=== PATIENT | female | born 1960 | race Caucasian/White ===

== ENCOUNTER 2024-08-07 05:33 | Day surgery (SDC) | payer OTHER, SELFPAY ==
--- NOTE | 2024-08-06 11:27 | EKG ---
Test Date: 2024-08-06 Test Time: 10:13:24 Sales And Merchandising Associate: ARACELI MEASUREMENT RESULTS: Intervals: Rate: 81 ND: 180 QRSD: 82 QT: 368 QTc: 427 Viking: P: 40 ND: 180 QRS: 41 T: 53 INTERPRETIVE STATEMENTS: Normal sinus rhythm Normal ECG No previous ECG available for comparison Electronically Signed On 08-06-24 11:26:50 [employer] by Wilbur Esquivel
[2024-08-07] MEDS ORDERED: CEFAZOLIN SODIUM 1 GM/VIAL ONE (05:42)
[2024-08-07] MEDS ORDERED: dexAMETHasone 10 MG/ML VIAL ONE (05:50)
[2024-08-07] MEDS ORDERED: LIDOCAINE 1% MPF 5 ML VIAL ONE ×2 (05:50→06:29)
[2024-08-07] MEDS ORDERED: FENTANYL CITR 100 MCG/2 ML ONE (05:51)
[2024-08-07] MEDS ORDERED: EPINEPHRINE 1 MG/ML VIAL ONE (05:51)
[2024-08-07] MEDS ORDERED: BUPIVACAINE 0.5% PF 10 ML VIAL ONE (05:52)
[2024-08-07] MEDS ORDERED: MIDAZOLAM HCL 2 MG/2 ML INJ ONE (05:52)
[2024-08-07] MEDS: Ringers Lactate 1,000 ML IV ONE ×2 (05:55→07:55)
[2024-08-07] MEDS ORDERED: LIDOCAINE 2% MPF 5 ML VIAL ONE (06:29)
[2024-08-07] MEDS ORDERED: propofoL 200 MG/20 ML VIAL IV ONE (06:29)
[2024-08-07] MEDS ORDERED: dexAMETHasone 4 MG/ML VIAL ONE (07:09)
[2024-08-07] MEDS ORDERED: ONDANSETRON 4 MG/2 ML VIAL ONE (07:09)
[2024-08-07] MEDS ORDERED: EPHEDRINE SULF 50 MG/ML VIAL ONE (07:42)
[2024-08-07] MEDS ORDERED: MEPERIDINE HCL 25 MG/ML SYR ONE (09:08)
[2024-08-07 09:32] VITALS: O2SAT 97
[2024-08-07 09:38] VITALS: BP 139/70; TEMP 97.3
--- NOTE | 2024-08-07 09:55 | OP ---
Date of Procedure: 08/07/2024 Surgeon: Pardeep Mitchell MD Preoperative Diagnosis: Left patella fracture. Postoperative Diagnosis: Left patella fracture. Procedure: Left patella open reduction and internal fixation using tension band wire technique. Estimated Blood Loss: Less than 20 cc. Complications: There were no complications. Indications For Operation: Ms. Irizarry is a 63-year-old female who unfortunately fell injuring her le ft lower extremity. She was seen and examined at outside facility where x-rays were taken, which dem onstrated a displaced essentially transverse patellar fracture. This injury occurred nearing 3 weeks ago. Risks, benefits, and alternatives to this procedure has been discussed with the patient. She states she understands things as presented and wishes to proceed. Description Of Procedure: The patient was taken to the operating room and placed in supine position. General anesthesia was obtained by the Anesthesia staff. Following this, well-padded tourniquet wa s placed on superior left thigh. Left lower extremity was then prepped and draped in usual sterile f ashion for the procedure. C-arm was brought in to ensure we get good AP and lateral views and the pa tella was forced inferiorly as the tourniquet was raised. After this, a standard anterior incision w as taken down carefully through skin and soft tissues. Meticulous hemostasis being maintained using Bovie electrocautery. This leads to the patella. There was quite a bit of fibrous tissue overlying the patellar fracture, however, the fracture was easily identified. Knife as well as rongeur was the n used to gently clean the fracture site and mobilize slightly, which allowed for better reduction. After this, a alexander clamp was used to clamp and using the C-arm and biplanar C-arm radiography, two 1 .6 K-wires were then placed, which traversed the fracture site. After this, an 18-gauge wire was the n passed behind the wires. It was checked under C-arm, did have some laxity. However, a great deal of tension was placed and did appear to compress the fracture quite well. There were some areas, whi ch appeared to be not quite tension, but this does correspond to areas of rather thick soft tissue. After it was tightened sufficiently, the knee was then brought through good range of motion and was f ound to have no gapping. The pins were then positioned, bent, and placed in final position. Biplana r C-arm radiography was used to ensure placement of pins and wire as well as reduction. The wound wa s gently irrigated and skin was closed using 2-0 Vicryl sutures followed by enzo. The patient was then placed in Aquacel dressing as well as a very well-padded dressing. A slab of Orthoglass was us ed as the knee immobilizer was placed over the over the dressing. The patient was then awakened and taken to recovery room in good condition. There were no complications. /MUMTAZ Voice ID: [id number] Report ID: [id number]
--- NOTE | 2024-08-07 11:20 | RAD REPORT ---
EXAMINATION: XR LEFT KNEE CLINICAL INDICATION: PATELLA ORIF fluoroscopy time 0.2 minutes.
== END 2024-08-07 10:27 | disposition home or self-care (01) ==
LOC: OR 05:33
PROVIDERS: ATTEND Orthopaedic Surgery
PROC: 0QSF04Z Reposition Left Patella with Internal Fixation Device, Open Approach (ICD-10-PCS; principal; 2024-08-07 07:00)
DX: S82.032A Displaced transverse fracture of left patella, initial encounter for closed fracture (principal)
CPT/HCPCS: 93005; J0171; J0690; J1100; J2003; J2175; J2250; J2405; J2704; J3010; J7120